=== PATIENT | male | born 1965 | race Caucasian/White ===

== ENCOUNTER 2017-06-07 12:32 | Emergency (ER) | payer SELFPAY ==
--- NOTE | 2017-06-07 13:42 | DIAGNOSTIC IMAGING REPORT ---
PROCEDURE: XR CHEST 1 VIEW INDICATION: CHEST PAIN TECHNIQUE: Portable AP view 01:16 p.m. COMPARISON: None available FINDINGS: Lungs are clear. Heart and mediastinum are normal. Thorax is normal. IMPRESSION: 1. Negative chest.
--- NOTE | 2017-06-07 15:41 | DIAGNOSTIC IMAGING REPORT ---
PROCEDURE: US ABDOMEN ULTRASOUND-LIMITED INDICATION: ABNORMAL LFT TECHNIQUE: Davis scale and color Doppler sonographic images of the abdomen were obtained without comparison. COMPARISON: None. FINDINGS: The liver is normal in size, contour, and echotexture. No mass or intrahepatic biliary dilatation. The gallbladder is normal without stones or sludge. The wall is normal thickness measuring 2.5 mm No pericholecystic fluid or Bueno sign. The extrahepatic common duct is normal measuring 3.7 mm The visualized pancreas is normal without ductal dilatation or peripancreatic fluid collection. The abdominal aorta is normal in its course and caliber. The retrohepatic inferior vena cava is patent. There is appropriate hepatopetal flow in the portal vein. The right kidney measures 11.4 cm in length. There is no perihepatic or perisplenic ascites. IMPRESSION: 1. Normal abdominal ultrasound.
--- NOTE | 2017-06-07 16:51 | ED CLINICAL REPORT ---
Clinical Report - Physicians/Mid Levels [facility] [address] [place] [address] 06/07/2017 12:33 Patient: VÍCTOR SHIRLEY Time Seen: 12:42. Arrived- By ambulance. Historian- patient and EMS personnel. HISTORY OF PRESENT ILLNESS Chief Complaint: CHEST PAIN. At its maximum, severity described as 3 / 10. When seen in the E.D., it was gone. Modifying factors- worsened by cough. Relieved by nitroglycerin (one). Relief was partial. This started 2 days ago and is still present and worsening. It was gradual in onset and has been constant. Onset during sleep. It is described as pressure and it is described as located in the left chest area and radiating to the throat. The patient has had mild difficulty breathing and nausea and has experienced diaphoresis. No vomiting. Similar symptoms previously: None. REVIEW OF SYSTEMS No pedal edema or calf pain. He has had a mild cough and palpitations. He has had severe lower back pain (chronically). No sensory loss or motor weakness. It has been similar to previous symptoms. All systems otherwise negative, except as recorded above. SOCIAL HISTORY Former smoker. No alcohol use or drug use. FAMILY HISTORY Hypertension in first-degree relative (father). ADDITIONAL NOTES The nursing notes have been reviewed. PHYSICAL EXAM Vital Signs: Have been reviewed. Appearance: The patient is morbidly obese. (tremulous). Eyes: Pupils equal, round and reactive to light. ENT: Pharynx normal. Neck: Normal inspection. Neck supple. CVS: Normal heart rate and rhythm. Heart sounds normal. Respiratory: No respiratory distress. Decreased air movement. No rales, rhonchi or wheezes. Abdomen: Soft and nontender. Bowel sounds normal. No mass. Obese. Skin: Diaphoresis. Extremities: Extremities exhibit normal ROM. No calf tenderness. No lower extremity edema. LABS, X-RAYS, AND EKG EKG: Rate: 146. Occasional ectopic beats. Premature atrial contractions. Non-specific ST segment / T wave abnormalities. Prior EKG unavailable. The study has been independently viewed by me. Artifact present. EKG #2: Rate: 117. Ectopic beats. Premature atrial contractions. EKG unchanged when compared with prior EKG. Artifact present. Chest X-ray: (IMPRESSION: 1. Negative chest.). The X-rays were interpreted by the radiologist and contemporaneously by me. Abdominal Sonogram: No acute disease. Laboratory Tests: UA-Culture if indicated: (JAZMIN: 06/07/2017 14:58) ( [facility] 06/07/2017 15:22) Final results Test Result Flag Units (Reference) URINE COLOR YELLOW URINE APPEARANCE CLEAR URINE GLUCOSE NEGATIVE (NEGATIVE) URINE BILIRUBIN NEGATIVE (NEGATIVE) URINE KETONE NEGATIVE (NEGATIVE) URINE SPECIFIC GRAVITY 1.010 (1.010-1.030) URINE PH 6.5 (5.0-8.0) URINE PROTEIN NEGATIVE (NEGATIVE) URINE UROBILINOGEN 0.2 EU/dL (0.2-1.0) URINE NITRITE NEGATIVE (NEGATIVE) URINE BLOOD NEGATIVE (NEGATIVE) URINE LEUK ESTERASE NEGATIVE (NEGATIVE) URINE RBC 0-1 rbc/hpf (0-1) URINE WBC 0-1 wbc/hpf (0-1) URINE EPITHELIAL CELLS 0-1 EPI/hpf (0-5) URINE BACTERIA NONE SEEN (NONE SEEN) URINE COMMENT CULT NOT INDICATED URINE CULTURES ARE SET-UP BASED ON THE FOLLOWING CRITERIA:POSITIVE NITRITEPOSITIVE LEUKOCYTE ESTERASEGREATER THAN 10 WHITE BLOOD CELLSMODERATE (2+) OR GREATER BACTERIA CBC w Diff: (JAZMIN: 06/07/2017 13:15) ( [facility] 06/07/2017 13:24) Final results Test Result Flag Units (Reference) WHITE BLOOD COUNT 6.2 K/uL (4.5-11.5) RED BLOOD COUNT 5.03 M/uL (4.50-5.90) HEMOGLOBIN 15.2 gm/dL (13.5-17.5) HEMATOCRIT 44.7 % (41.0-53.0) MEAN CELL VOLUME 89 fL (80-100) MEAN CORPUSCULAR HGB 30 pg (26-34) MEAN CORPUSCULAR HGB CONC 34 g/dL (31-37) RED CELL DISTRIBUTION WIDTH 14.1 % (11.6-14.8) PLATELET COUNT 222 K/uL (150-400) NEUTROPHIL % 59.0 % (50-75) LYMPH % 25.7 % (25-40) MONO % 11.4 % (3-14) EOSINOPHIL % 3.2 % (0-4) BASOPHIL % 0.7 % (0-2) PT with INR: (JAZMIN: 06/07/2017 13:15) ( [facility] 06/07[facility] 13:33) Final results Test Result Flag Units (Reference) INR 1.0 (0.8-1.2) Low Intensity Therapy: INR 1.5-2.0 PT range 18.5-23.1Mod.Intensity Therapy: INR 2.0-3.0 PT range 23.1-31.5High Intensity Therapy: INR 2.5-3.5 PT range 27.4-35.5High Intensity Therapy 2: INR 3.0-4.0 PT range 31.5-39.3 APTT 28 SECONDS (24-34) D-DIMER QUANTITATIVE < 0.27 L ug/mLFEU (0.27-0.52) The primary value of this quantitative assay relates toits negative predictive value (i.e. exclusion) of pulmonaryembolism/deep vein thrombosis/DIC.Elevated levels of d-dimer may also occur with:, age, cancer, inflammation, liver disease,post-op, infection, hematoma, coronary disease, peripheralarteriopathy, bleeding disorders and thrombolytic treatment.Results should be correlated with other clinical andradiological data.Testing Methodology: Latex Immunoassay CMP: (JAZMIN: 06/07/2017 13:15) ( [facility] 06/07/2017 15:56) Final results Test Result Flag Units (Reference) GLUCOSE 96 mg/dL (70-110) BUN 10 mg/dL (7-18) CREATININE 0.8 mg/dL (0.6-1.3) Estimated GFR >60 mL/min Estimated GFR- >60 mL/min Note: Persistent reduction over 3 months in eGFR<60 mL/min/1.73 m2 defines CKD. Patients with eGFR values>=60 mL/min/1.73 m2 may also have CKD if evidence ofpersistent proteinuria. Additional information may be foundat [email or web address].org. SODIUM 144 mmol/L (136-145) POTASSIUM 3.9 mmol/L (3.5-5.1) CHLORIDE 110 H mmol/L (98-107) CARBON DIOXIDE 26 mmol/L (21-32) CALCIUM 8.0 L mg/dL (8.5-10.1) TOTAL PROTEIN 6.5 g/dL (6.4-8.2) ALBUMIN 3.4 g/dL (3.3-5.0) BILIRUBIN, TOTAL 0.5 mg/dL (0.0-1.0) ALKALINE PHOSPHATASE 110 U/L (46-116) AST (SGOT) 159 H U/L (15-37) ALT (SGPT) 486 H U/L (12-78) LIPASE 122 U/L (73-393) AMYLASE 52 U/L (25-115) CPK 82 U/L (24-260) TROPONIN I <0.05 ng/mL (0.00-1.5) TROPONIN REFERENCE RANGE:<0.1 NEGATIVE0.1-1.5 INDETERMINANT>1.5 POSITIVE THYROID STIMULATING HORMONE 3.068 uIU/mL (0.30-3.74) . PROGRESS AND PROCEDURES Discussed case with health care provider (Dr. James - at [facility] - She says that the patient may establish care with them. They will arrange for a pharmacologic stress test and cardiology follow-up if needed.). Reviewed test results and need for additional work-up. Agreed upon need for patient follow-up. Health care provider will see patient in office. Consult obtained from cardiology. Dr. Etienne. Case discussed. Phone consult only. Old medical records reviewed. (from [facility]). Disposition: Discharged. Condition: stable. CLINICAL IMPRESSION Atypical chest pain Palpitations Chronic lumbar back pain. INSTRUCTIONS No driving or operating machinery while taking medication. Sedative medication was given during your visit. No strenuous activity. Rest. Avoid stimulants (such as cigarettes, coffee, cold medicines, sinus medicines, street drugs). (Talk with your primary care provider at the [facility] about arranging a pharmacologic stress test for you as discussed.). Warnings: Further evaluation is necessary. GENERAL WARNINGS: Return or contact your physician immediately if your condition worsens or changes unexpectedly, if not improving as expected, or if other problems arise. Your Current Medications: CONTINUE TAKING THE FOLLOWING MEDICATIONS: Metoprolol Succinate ER Oral. Omeprazole Magnesium Oral. Propranolol HCl ER Oral. 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 Understanding of the discharge instructions verbalized by patient. Follow-up with: [facility], , , [address], , [place], [id number] Follow up tomorrow. Call for an appointment. (Electronically signed by Jim Carrasco MD 06/09/2017 9:12)
--- NOTE | 2017-06-07 16:51 | ED CLINICAL REPORT ---
Clinical Report - Physicians/Mid Levels [facility] [address] [place] [address] 06/07/2017 12:33 Patient: VÍCTOR SHIRLEY Time Seen: 12:42. Arrived- By ambulance. Historian- patient and EMS personnel. HISTORY OF PRESENT ILLNESS Chief Complaint: CHEST PAIN. At its maximum, severity described as 3 / 10. When seen in the E.D., it was gone. Modifying factors- worsened by cough. Relieved by nitroglycerin (one). Relief was partial. This started 2 days ago and is still present and worsening. It was gradual in onset and has been constant. Onset during sleep. It is described as pressure and it is described as located in the left chest area and radiating to the throat. The patient has had mild difficulty breathing and nausea and has experienced diaphoresis. No vomiting. Similar symptoms previously: None. REVIEW OF SYSTEMS No pedal edema or calf pain. He has had a mild cough and palpitations. He has had severe lower back pain (chronically). No sensory loss or motor weakness. It has been similar to previous symptoms. All systems otherwise negative, except as recorded above. SOCIAL HISTORY Former smoker. No alcohol use or drug use. FAMILY HISTORY Hypertension in first-degree relative (father). ADDITIONAL NOTES The nursing notes have been reviewed. PHYSICAL EXAM Vital Signs: Have been reviewed. Appearance: The patient is morbidly obese. (tremulous). Eyes: Pupils equal, round and reactive to light. ENT: Pharynx normal. Neck: Normal inspection. Neck supple. CVS: Normal heart rate and rhythm. Heart sounds normal. Respiratory: No respiratory distress. Decreased air movement. No rales, rhonchi or wheezes. Abdomen: Soft and nontender. Bowel sounds normal. No mass. Obese. Skin: Diaphoresis. Extremities: Extremities exhibit normal ROM. No calf tenderness. No lower extremity edema. LABS, X-RAYS, AND EKG EKG: Rate: 146. Occasional ectopic beats. Premature atrial contractions. Non-specific ST segment / T wave abnormalities. Prior EKG unavailable. The study has been independently viewed by me. Artifact present. EKG #2: Rate: 117. Ectopic beats. Premature atrial contractions. EKG unchanged when compared with prior EKG. Artifact present. Chest X-ray: (IMPRESSION: 1. Negative chest.). The X-rays were interpreted by the radiologist and contemporaneously by me. Abdominal Sonogram: No acute disease. Laboratory Tests: UA-Culture if indicated: (JAZMIN: 06/07/2017 14:58) ( [facility] 06/07/2017 15:22) Final results Test Result Flag Units (Reference) URINE COLOR YELLOW URINE APPEARANCE CLEAR URINE GLUCOSE NEGATIVE (NEGATIVE) URINE BILIRUBIN NEGATIVE (NEGATIVE) URINE KETONE NEGATIVE (NEGATIVE) URINE SPECIFIC GRAVITY 1.010 (1.010-1.030) URINE PH 6.5 (5.0-8.0) URINE PROTEIN NEGATIVE (NEGATIVE) URINE UROBILINOGEN 0.2 EU/dL (0.2-1.0) URINE NITRITE NEGATIVE (NEGATIVE) URINE BLOOD NEGATIVE (NEGATIVE) URINE LEUK ESTERASE NEGATIVE (NEGATIVE) URINE RBC 0-1 rbc/hpf (0-1) URINE WBC 0-1 wbc/hpf (0-1) URINE EPITHELIAL CELLS 0-1 EPI/hpf (0-5) URINE BACTERIA NONE SEEN (NONE SEEN) URINE COMMENT CULT NOT INDICATED URINE CULTURES ARE SET-UP BASED ON THE FOLLOWING CRITERIA:POSITIVE NITRITEPOSITIVE LEUKOCYTE ESTERASEGREATER THAN 10 WHITE BLOOD CELLSMODERATE (2+) OR GREATER BACTERIA CBC w Diff: (JAZMIN: 06/07/2017 13:15) ( [facility] 06/07/2017 13:24) Final results Test Result Flag Units (Reference) WHITE BLOOD COUNT 6.2 K/uL (4.5-11.5) RED BLOOD COUNT 5.03 M/uL (4.50-5.90) HEMOGLOBIN 15.2 gm/dL (13.5-17.5) HEMATOCRIT 44.7 % (41.0-53.0) MEAN CELL VOLUME 89 fL (80-100) MEAN CORPUSCULAR HGB 30 pg (26-34) MEAN CORPUSCULAR HGB CONC 34 g/dL (31-37) RED CELL DISTRIBUTION WIDTH 14.1 % (11.6-14.8) PLATELET COUNT 222 K/uL (150-400) NEUTROPHIL % 59.0 % (50-75) LYMPH % 25.7 % (25-40) MONO % 11.4 % (3-14) EOSINOPHIL % 3.2 % (0-4) BASOPHIL % 0.7 % (0-2) PT with INR: (JAZMIN: 06/07/2017 13:15) ( [facility] 13:33) Final results Test Result Flag Units (Reference) INR 1.0 (0.8-1.2) Low Intensity Therapy: INR 1.5-2.0 PT range 18.5-23.1Mod.Intensity Therapy: INR 2.0-3.0 PT range 23.1-31.5High Intensity Therapy: INR 2.5-3.5 PT range 27.4-35.5High Intensity Therapy 2: INR 3.0-4.0 PT range 31.5-39.3 APTT 28 SECONDS (24-34) D-DIMER QUANTITATIVE < 0.27 L ug/mLFEU (0.27-0.52) The primary value of this quantitative assay relates toits negative predictive value (i.e. exclusion) of pulmonaryembolism/deep vein thrombosis/DIC.Elevated levels of d-dimer may also occur with:, age, cancer, inflammation, liver disease,post-op, infection, hematoma, coronary disease, peripheralarteriopathy, bleeding disorders and thrombolytic treatment.Results should be correlated with other clinical andradiological data.Testing Methodology: Latex Immunoassay CMP: (JAZMIN: 06/07/2017 13:15) ( [facility] 06/07/2017 15:56) Final results Test Result Flag Units (Reference) GLUCOSE 96 mg/dL (70-110) BUN 10 mg/dL (7-18) CREATININE 0.8 mg/dL (0.6-1.3) Estimated GFR >60 mL/min Estimated GFR- >60 mL/min Note: Persistent reduction over 3 months in eGFR<60 mL/min/1.73 m2 defines CKD. Patients with eGFR values>=60 mL/min/1.73 m2 may also have CKD if evidence ofpersistent proteinuria. Additional information may be foundat [email or web address].org. SODIUM 144 mmol/L (136-145) POTASSIUM 3.9 mmol/L (3.5-5.1) CHLORIDE 110 H mmol/L (98-107) CARBON DIOXIDE 26 mmol/L (21-32) CALCIUM 8.0 L mg/dL (8.5-10.1) TOTAL PROTEIN 6.5 g/dL (6.4-8.2) ALBUMIN 3.4 g/dL (3.3-5.0) BILIRUBIN, TOTAL 0.5 mg/dL (0.0-1.0) ALKALINE PHOSPHATASE 110 U/L (46-116) AST (SGOT) 159 H U/L (15-37) ALT (SGPT) 486 H U/L (12-78) LIPASE 122 U/L (73-393) AMYLASE 52 U/L (25-115) CPK 82 U/L (24-260) TROPONIN I <0.05 ng/mL (0.00-1.5) TROPONIN REFERENCE RANGE:<0.1 NEGATIVE0.1-1.5 INDETERMINANT>1.5 POSITIVE THYROID STIMULATING HORMONE 3.068 uIU/mL (0.30-3.74) . PROGRESS AND PROCEDURES Discussed case with health care provider (Dr. James - at [facility] - She says that the patient may establish care with them. They will arrange for a pharmacologic stress test and cardiology follow-up if needed.). Reviewed test results and need for additional work-up. Agreed upon need for patient follow-up. Health care provider will see patient in office. Consult obtained from cardiology. Dr. Etienne. Case discussed. Phone consult only. Old medical records reviewed. (from [facility]). Disposition: Discharged. Condition: stable. CLINICAL IMPRESSION Atypical chest pain Palpitations Chronic lumbar back pain. INSTRUCTIONS No driving or operating machinery while taking medication. Sedative medication was given during your visit. No strenuous activity. Rest. Avoid stimulants (such as cigarettes, coffee, cold medicines, sinus medicines, street drugs). (Talk with your primary care provider at the [facility] about arranging a pharmacologic stress test for you as discussed.). Warnings: Further evaluation is necessary. GENERAL WARNINGS: Return or contact your physician immediately if your condition worsens or changes unexpectedly, if not improving as expected, or if other problems arise. Your Current Medications: CONTINUE TAKING THE FOLLOWING MEDICATIONS: Metoprolol Succinate ER Oral. Omeprazole Magnesium Oral. Propranolol HCl ER Oral. Follow-up: Follow up with a advice line rn. Understanding of the discharge instructions verbalized by patient. Follow-up with: [facility], , , [address], , [place], [phone] Follow up tomorrow. Call for an appointment. (Electronically signed by Jim Carrasco MD 06/09/2017 9:12)
--- NOTE | 2017-06-07 16:51 | ED ORDER SUMMARY ---
..... Patient: VÍCTOR SHIRLEY OrderSheet [facility] VisitID: [id number] [place] [address] 52y, M Registration Date/Time: 06/07/2017 ORDER SHEET Weight: 123.8 kg Allergies: morphine, Penicillin, Cephalosporins, Percocet GENERAL ORDERS: Chest 1V Urgent (12:53 06/07/2017 Panchito PETTIT) (Ack 13:13 Shane ER Tech1) (13:34 JSimbeck R.N.) Account Support Analyst (Continuous) (12:53 06/07/2017 Panchito PETTIT) (13:03 JSimbeck R.N.) CBC w Diff Urgent (12:54 06/07/2017 Panchito PETTIT) (Ack 13:13 Shane ER Rosalva) (13:16 JSimbeck R.N.) CMP Urgent (12:54 06/07/2017 Panchito PETTIT) (Ack 13:13 Shane ER Terese1) (13:16 JSimbeck R.N.) UA-Culture if indicated Urgent (12:54 06/07/2017 Panchito PETTIT) (Ack 13:13 Shane Blackwell) (15:05 JSimbeck R.N.) PT with INR Urgent (12:54 06/07/2017 Panchito PETTIT) (Ack 13:13 Shane Blackwell) (13:16 JSimbeck R.N.) PTT Urgent (12:54 06/07/2017 Panchito PETTIT) (Ack 13:13 Shane Blackwell) (13:16 JSimbeck R.N.) Amylase Urgent (12:54 06/07/2017 Panchito PETTIT) (Ack 13:13 Shane Gudino1) (13:16 JSimbeck R.N.) D-Dimer Urgent (12:54 06/07/2017 Panchito PETTIT) (Ack 13:13 Shane Blackwell) (13:16 JSimbeck R.N.) Lipase Urgent (12:54 06/07/2017 Panchito PETTIT) (Ack 13:13 Shane Blackwell) (13:16 JSimbeck R.N.) CPK Urgent (12:54 06/07/2017 Panchito PETTIT) (Ack 13:13 PWeiler ER Tech1) (13:16 Chapincito R.N.) Troponin-I Urgent (12:54 06/07/2017 Panchito PETTIT) (Ack 13:13 PWeiler ER Tech1) (13:16 Stuarteck R.N.) Oxygen (2 L/min) (NC) (12:54 06/07/2017 Panchito PETTIT) (13:03 Chapincito R.N.) Pulse oximeter (12:54 06/07/2017 Panchito PETTIT) (13:03 Chapincito R.N.) EKG - ER Stat (12:54 06/07/2017 Panchito PETTIT) (13:03 Chapincito R.N.) US Abdomen Limited (No) Urgent (13:48 06/07/2017 Panchito PETTIT) (Ack 14:21 LNations ER Tech1) (15:03 Chapincito R.N.) TSH Urgent (15:33 06/07/2017 Panchito PETTIT) (15:42 Dawit R.N.) MEDICATION ORDERS: IV FLUIDS: IV NS : initial bolus 500 mL (1000 mL/hr), then 150 mL/hr for 4h (NOW); Urgent (12:53 06/07/2017 Panchito PETTIT) (13:04 Chapincito R.N.) Dilaudid IV 1 mg (HIGH ALERT MEDICATION, NOW) (12:53 06/07/2017 Panchito PETTIT) (13:06 Chapincito R.N.) Zofran IV 4 mg (NOW) (12:54 06/07/2017 Panchito PETTIT) (13:05 Chapincito R.N.) Dilaudid IV 0.5 mg (HIGH ALERT MEDICATION, NOW) (16:41 06/07/2017 Panchito PETTIT) (Ack 17:10 TOMYimbeck R.N.) (17:21 Kirti) ORDER SHEET NOTES: [Electronically signed by Jose A Hernadez (17:22 06/07/2017)] [Electronically signed by Jim Carrasco MD (09:12 06/09/2017)] [Electronically locked/signed by Jose A Hernadez (17:22 06/07/2017)]
--- NOTE | 2017-06-07 16:51 | ED NURSING NOTES ---
Clinical Report - Nurses [facility] [address] [place] [address] 06/07/2017 12:33 Patient: VÍCTOR SHIRLEY TRIAGE Triage time 12:34. Acuity: LEVEL 2. Chief Complaint: CHEST PAIN and DISCOMFORT and (radiates into his left jaw, mild SOB. Onset yesterday. Pt reports his heart fluttering.). SEPSIS SCREEN: Sepsis Screen. Negative (no infection suspected/documented). Heart rate greater than 90 and systolic blood pressure less than 90. STELLA COMA SCORE: [place] Coma Scale: 15- eyes open spontaneously (4); best verbal response- oriented x 4 (5); best motor response- obeys commands (6). --13:08 Trace Benitez R.N. 12:38 06/07/17. BP: 84/69 (large adult cuff) taken on the right arm, while sitting. HR: 148. RR: 20. O2 saturation: 95%. Temp: 98 F (oral). Pain level now: 07/05. --13:08 Trace Benitez R.N. Weight: 123.8 kg. Height/Length: 74 inches. BMI: 35.1. --12:58 Trace Benitez R.N. Medications Metoprolol Succinate ER Oral. --12:43 Trace Benitez R.N. Propranolol HCl ER Oral. --12:43 Trace Benitez R.N. Omeprazole Magnesium Oral. --12:43 Trace Benitez R.N. Allergies morphine. --12:40 Trace Benitez R.N. Penicillin. --12:40 Trace Benitez R.N. Cephalosporins. --12:40 Trace Benitez R.N. Percocet. --12:41 Trace Benitez R.N. History Arrived by EMS, and (Medics). Historian: EMS and patient. ( Unable to obtain a readable 12 Lead EKG due to pt shaking, notified.). 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 (ASA 325, IV SL). SOCIAL HX: Former smoker, end date 2012 (cigarette). No alcohol use or drug use. ABUSE ASSESSMENT: No report of abuse. --13:08 Trace eBnitez R.N. Interventions ID band on patient. To treatment room. --13:08 Trace Benitez R.N. PHYSICAL ASSESSMENT late entry -12:34. To room via stretcher. ( Severe low back pain 07/05.). GENERAL / NEURO / PSYCH: Alert. Oriented X 4. Appears in pain and anxious. HEENT: Mucous membranes are pink. RESPIRATORY: Respirations not labored. Breath sounds within normal limits. ( Mild SOB). CVS: Cardiac rhythm: sinus tachycardia. Heart sounds within normal limits. Pulses within normal limits. ( Substernal chest pain, not reproducible, radiates into his left jaw). Capillary refill less than 2 seconds. GI / : Abdomen soft and nontender. EXTREMITIES: No lower extremity edema. SKIN: Skin is warm. Skin is diaphoretic. Normal skin turgor. Skin is non-tender. --13:40 Trace Benitez R.N. NURSING PROGRESS NOTES 12:34 06/07/2017 Site #1 started prior to arrival by EMS via IV in the left antecubital space with an 18g angiocath. Saline lock flushed with 10 mL saline. --13:04 Trace Benitez R.N. <<STRICKEN ENTRY-- 12:45 06/07/2017 Started bag #1 1000 mL IV Fluids IV NS (Saline); bolus of 500 mL over 15 minute(s) via site #1. IV patency established. IV site checked: no pain, redness, or swelling. IV flushed thoroughly pre- and post-medication administration. --13:04 Trace Benitez R.N. --END STRIKE>> Correction. --13:04 Trace Benitez R.N. 12:45 06/07/2017 Started bag #1 1000 IV Fluids IV NS (Saline); bolus of 500 mL over 15 minute(s) via site #1. Allergies verified and confirmed 5 rights. IV patency established. IV site checked: no pain, redness, or swelling. IV flushed thoroughly pre- and post-medication administration. --13:04 Trace Benitez R.N. 13:00 06/07/2017 Zofran (Ondansetron HCl) IVP 4 mg given over 1 minute(s) via site #1. Allergies verified and confirmed 5 rights. IV patency established. IV site checked: no pain, redness, or swelling. IV flushed thoroughly pre- and post-medication administration. IVP given by RN. --13:05 Trace Benitez R.N. 13:01 06/07/2017 Dilaudid (HYDROmorphone HCl PF) IVP 1 mg given over 1 minute(s) via site #1. Allergies verified, confirmed 5 rights and sedative warning given to the patient. IV patency established. IV site checked: no pain, redness, or swelling. IV flushed thoroughly pre- and post-medication administration. IVP given by RN. --13:06 Trace Benitez R.N. 13:16 06/07/2017 Dilaudid IVP Response: no adverse reaction pain is improving. Symptoms have improved the patient feels better. --13:16 Trace Benitez R.N. 13:25 06/07/17. Monitoring of patient in place. Head of bed elevated 15 degrees. Reassurance given. Call light placed in reach. Side rails up x 2. Bed placed in lowest position. Brakes of bed on. --13:25 William EKG time: (1308). EKG was ordered, performed by a tech and shown to the ED physician. --13:44 Parrish Gonzales ER Tech1 13:48 06/07/2017 Dilaudid (HYDROmorphone HCl PF) IVP 1 mg given over 1 minute(s) via site #1. Allergies verified, confirmed 5 rights and sedative warning given to the patient. IV patency established. IV site checked: no pain, redness, or swelling. IV flushed thoroughly pre- and post-medication administration. IVP given by RN. --13:49 Trace Benitez R.N. 13:51 06/07/2017 IV Fluids IV NS Continued: at the rate of 150 mL/hr. 1000 mL remaining bag #2. IV patency established. IV site checked: no pain, redness, or swelling. IV flushed thoroughly. --13:51 William 14:19 06/07/2017 Dilaudid IVP Response: no adverse reaction pain is improving. Symptoms have improved. --14:19 Trace Benitez R.N. ( US at bedside). --14:20 Trace Benitez R.N. 17:00 06/07/2017 Dilaudid (HYDROmorphone HCl PF) IVP 0.5 mg given over 2 minute(s) via site #1. Allergies verified, confirmed 5 rights and sedative warning given to the patient. IV patency established. IV site checked: no pain, redness, or swelling. IV flushed thoroughly pre- and post-medication administration. IVP given by RN. --17:21 William. DISPOSITION / DISCHARGE 17:04 06/07/2017 Site #1 removed upon discharge. Bandage applied. --17:09 William Cardiac rhythm: normal sinus rhythm. Departure time: 17:08. Condition at departure: improved and stable. No learning barriers present. Discharge instructions provided and reviewed with the patient. Reviewed referral to a ignition specialist and family practice. Activity restrictions (rest) reviewed. Patient verbalized understanding. Written instructions provided in Romanian. The patient was discharged by the physician. He was discharged home and accompanied by director oracle. He left the Emergency Department ambulatory and via private vehicle. Wash Worker driving. --17:11 William 16:45 06/07/17. BP: 143/93. HR: 94. RR: 18. O2 saturation: 97%. Temp: 98 F (oral). James-Garcia pain scale: 4/10. --17:11 William. Locked/Released at 06/07/2017 17:22 by William
--- NOTE | 2017-06-07 16:51 | ED NURSING NOTES ---
Clinical Report - Nurses [facility] [address] [place] [address] 06/07/2017 12:33 Patient: VÍCTOR SHIRLEY TRIAGE Triage time 12:34. Acuity: LEVEL 2. Chief Complaint: CHEST PAIN and DISCOMFORT and (radiates into his left jaw, mild SOB. Onset yesterday. Pt reports his heart fluttering.). SEPSIS SCREEN: Sepsis Screen. Negative (no infection suspected/documented). Heart rate greater than 90 and systolic blood pressure less than 90. STELLA COMA SCORE: [place] Coma Scale: 15- eyes open spontaneously (4); best verbal response- oriented x 4 (5); best motor response- obeys commands (6). --13:08 Trace Benitez R.N. 12:38 06/07/17. BP: 84/69 (large adult cuff) taken on the right arm, while sitting. HR: 148. RR: 20. O2 saturation: 95%. Temp: 98 F (oral). Pain level now: 07/05. --13:08 Trace Benitez R.N. Weight: 123.8 kg. Height/Length: 74 inches. BMI: 35.1. --12:58 Trace Benitez R.N. Medications Metoprolol Succinate ER Oral. --12:43 Trace Benitez R.N. Propranolol HCl ER Oral. --12:43 Trace Benitez R.N. Omeprazole Magnesium Oral. --12:43 Trace Benitez R.N. Allergies morphine. --12:40 Trace Benitez R.N. Penicillin. --12:40 Trace Benitez R.N. Cephalosporins. --12:40 Trace Benitez R.N. Percocet. --12:41 Trace Benitez R.N. History Arrived by EMS, and (Medics). Historian: EMS and patient. ( Unable to obtain a readable 12 Lead EKG due to pt shaking, notified.). 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 (ASA 325, IV SL). SOCIAL HX: Former smoker, end date 2012 (cigarette). No alcohol use or drug use. ABUSE ASSESSMENT: No report of abuse. --13:08 Trace Benitez R.N. Interventions ID band on patient. To treatment room. --13:08 Trace Benitez R.N. PHYSICAL ASSESSMENT late entry -12:34. To room via stretcher. ( Severe low back pain 07/05.). GENERAL / NEURO / PSYCH: Alert. Oriented X 4. Appears in pain and anxious. HEENT: Mucous membranes are pink. RESPIRATORY: Respirations not labored. Breath sounds within normal limits. ( Mild SOB). CVS: Cardiac rhythm: sinus tachycardia. Heart sounds within normal limits. Pulses within normal limits. ( Substernal chest pain, not reproducible, radiates into his left jaw). Capillary refill less than 2 seconds. GI / : Abdomen soft and nontender. EXTREMITIES: No lower extremity edema. SKIN: Skin is warm. Skin is diaphoretic. Normal skin turgor. Skin is non-tender. --13:40 Trace Benitez R.N. NURSING PROGRESS NOTES 12:34 06/07/2017 Site #1 started prior to arrival by EMS via IV in the left antecubital space with an 18g angiocath. Saline lock flushed with 10 mL saline. --13:04 Trace Benitez R.N. <<STRICKEN ENTRY-- 12:45 06/07/2017 Started bag #1 1000 mL IV Fluids IV NS (Saline); bolus of 500 mL over 15 minute(s) via site #1. IV patency established. IV site checked: no pain, redness, or swelling. IV flushed thoroughly pre- and post-medication administration. --13:04 Trace Benitez R.N. --END STRIKE>> Correction. --13:04 Trace Benitez R.N. 12:45 06/07/2017 Started bag #1 1000 IV Fluids IV NS (Saline); bolus of 500 mL over 15 minute(s) via site #1. Allergies verified and confirmed 5 rights. IV patency established. IV site checked: no pain, redness, or swelling. IV flushed thoroughly pre- and post-medication administration. --13:04 Trace Benitez R.N. 13:00 06/07/2017 Zofran (Ondansetron HCl) IVP 4 mg given over 1 minute(s) via site #1. Allergies verified and confirmed 5 rights. IV patency established. IV site checked: no pain, redness, or swelling. IV flushed thoroughly pre- and post-medication administration. IVP given by RN. --13:05 Trace Benitez R.N. 13:01 06/07/2017 Dilaudid (HYDROmorphone HCl PF) IVP 1 mg given over 1 minute(s) via site #1. Allergies verified, confirmed 5 rights and sedative warning given to the patient. IV patency established. IV site checked: no pain, redness, or swelling. IV flushed thoroughly pre- and post-medication administration. IVP given by RN. --13:06 Trace Benitez R.N. 13:16 06/07/2017 Dilaudid IVP Response: no adverse reaction pain is improving. Symptoms have improved the patient feels better. --13:16 Trace Benitez R.N. 13:25 06/07/17. Monitoring of patient in place. Head of bed elevated 15 degrees. Reassurance given. Call light placed in reach. Side rails up x 2. Bed placed in lowest position. Brakes of bed on. --13:25 William EKG time: (1308). EKG was ordered, performed by a tech and shown to the ED physician. --13:44 Parrish Gonzales ER Tech1 13:48 06/07/2017 Dilaudid (HYDROmorphone HCl PF) IVP 1 mg given over 1 minute(s) via site #1. Allergies verified, confirmed 5 rights and sedative warning given to the patient. IV patency established. IV site checked: no pain, redness, or swelling. IV flushed thoroughly pre- and post-medication administration. IVP given by RN. --13:49 Trace Benitez R.N. 13:51 06/07/2017 IV Fluids IV NS Continued: at the rate of 150 mL/hr. 1000 mL remaining bag #2. IV patency established. IV site checked: no pain, redness, or swelling. IV flushed thoroughly. --13:51 William 14:19 06/07/2017 Dilaudid IVP Response: no adverse reaction pain is improving. Symptoms have improved. --14:19 Trace Benitez R.N. ( US at bedside). --14:20 Trace Benitez R.N. 17:00 06/07/2017 Dilaudid (HYDROmorphone HCl PF) IVP 0.5 mg given over 2 minute(s) via site #1. Allergies verified, confirmed 5 rights and sedative warning given to the patient. IV patency established. IV site checked: no pain, redness, or swelling. IV flushed thoroughly pre- and post-medication administration. IVP given by RN. --17:21 William. DISPOSITION / DISCHARGE 17:04 06/07/2017 Site #1 removed upon discharge. Bandage applied. --17:09 William Cardiac rhythm: normal sinus rhythm. Departure time: 17:08. Condition at departure: improved and stable. No learning barriers present. Discharge instructions provided and reviewed with the patient. Reviewed referral to a hand shaper and family practice. Activity restrictions (rest) reviewed. Patient verbalized understanding. Written instructions provided in Danish. The patient was discharged by the physician. He was discharged home and accompanied by stitching department supervisor. He left the Emergency Department ambulatory and via private vehicle. Gate Attendant driving. --17:11 William 16:45 06/07/17. BP: 143/93. HR: 94. RR: 18. O2 saturation: 97%. Temp: 98 F (oral). James-Garcia pain scale: 4/10. --17:11 William. Locked/Released at 06/07/2017 17:22 by William
--- NOTE | 2017-06-07 16:51 | ED ORDER SUMMARY ---
..... Patient: VÍCTOR SHIRLEY OrderSheet [facility] VisitID: [id number] [place] [address] 52y, M Registration Date/Time: 06/07/2017 ORDER SHEET Weight: 123.8 kg Allergies: morphine, Penicillin, Cephalosporins, Percocet GENERAL ORDERS: Chest 1V Urgent (12:53 06/07/2017 Panchito PETTIT) (Ack 13:13 Shane ER Tech1) (13:34 JSimbeck R.N.) Oil Pit Attendant (Continuous) (12:53 06/07/2017 Panchito PETTIT) (13:03 JSimbeck R.N.) CBC w Diff Urgent (12:54 06/07/2017 Panchito PETTIT) (Ack 13:13 Shane ER Rosalva) (13:16 JSimbeck R.N.) CMP Urgent (12:54 06/07/2017 Panchito PETTIT) (Ack 13:13 Shane ER Terese1) (13:16 JSimbeck R.N.) UA-Culture if indicated Urgent (12:54 06/07/2017 Panchito PETTIT) (Ack 13:13 Shane Blackwell) (15:05 JSimbeck R.N.) PT with INR Urgent (12:54 06/07/2017 Panchito PETTIT) (Ack 13:13 Shane Blackwell) (13:16 JSimbeck R.N.) PTT Urgent (12:54 06/07/2017 Panchito PETTIT) (Ack 13:13 Shane Blackwell) (13:16 JSimbeck R.N.) Amylase Urgent (12:54 06/07/2017 Panchito PETTIT) (Ack 13:13 Shane Gudino1) (13:16 JSimbeck R.N.) D-Dimer Urgent (12:54 06/07/2017 Panchito PETTIT) (Ack 13:13 Shane Blackwell) (13:16 JSimbeck R.N.) Lipase Urgent (12:54 06/07/2017 Panchito PETTIT) (Ack 13:13 Shane Blackwell) (13:16 JSimbeck R.N.) CPK Urgent (12:54 06/07/2017 Panchito PETTIT) (Ack 13:13 PWeiler ER Tech1) (13:16 Chapincito R.N.) Troponin-I Urgent (12:54 06/07/2017 Panchito PETTIT) (Ack 13:13 PWeiler ER Tech1) (13:16 Stuarteck R.N.) Oxygen (2 L/min) (NC) (12:54 06/07/2017 Panchito PETTIT) (13:03 Chapincito R.N.) Pulse oximeter (12:54 06/07/2017 Panchito PETTIT) (13:03 Chapincito R.N.) EKG - ER Stat (12:54 06/07/2017 Panchito PETTIT) (13:03 Chapincito R.N.) US Abdomen Limited (No) Urgent (13:48 06/07/2017 Panchito PETTIT) (Ack 14:21 LNations ER Tech1) (15:03 Chapincito R.N.) TSH Urgent (15:33 06/07/2017 Panchito PETTIT) (15:42 Dawit R.N.) MEDICATION ORDERS: IV FLUIDS: IV NS : initial bolus 500 mL (1000 mL/hr), then 150 mL/hr for 4h (NOW); Urgent (12:53 06/07/2017 Panchito PETTIT) (13:04 Chapincito R.N.) Dilaudid IV 1 mg (HIGH ALERT MEDICATION, NOW) (12:53 06/07/2017 Panchito PETTIT) (13:06 Chapincito R.N.) Zofran IV 4 mg (NOW) (12:54 06/07/2017 Panchito PETTIT) (13:05 Chapincito R.N.) Dilaudid IV 0.5 mg (HIGH ALERT MEDICATION, NOW) (16:41 06/07/2017 Panchito PETTIT) (Ack 17:10 TOMYimbeck R.N.) (17:21 Kirti) ORDER SHEET NOTES: [Electronically signed by Jose A Hernadez (17:22 06/07/2017)] [Electronically signed by Jim Carrasco MD (09:12 06/09/2017)] [Electronically locked/signed by Jose A Hernadez (17:22 06/07/2017)]
--- NOTE | 2017-06-09 09:13 | ED MED RECONCILIATION SUMMARY ---
Patient: VÍCTOR SHIRLEY Medication Reconciliation Report [facility] VisitID: [id number] [address] [place] [address] 52y, M Registration Date/Time: 06/07/2017 Weight: 123.8 kg Height/Length: 74 in. BMI: 35.1 ALLERGIES: Cephalosporins, morphine, Penicillin, Percocet The patient's Home Medications are listed below: CONTINUE TAKING THE FOLLOWING MEDICATIONS: Metoprolol Succinate ER Oral Omeprazole Magnesium Oral Propranolol HCl ER Oral The source(s) of the original Home Medication information: Not obtained. The following Medications were given to the patient in the Emergency Department: IV NS IV Fluids bolus 500 mL over 15 minute(s), administered: 06/07/2017 12:45:00 PM Zofran [IVP] IVP 4 mg, administered: 06/07/2017 1:00:00 PM Dilaudid [IVP] IVP 1 mg, administered: 06/07/2017 1:01:00 PM Dilaudid [IVP] IVP 1 mg, administered: 06/07/2017 1:48:00 PM Dilaudid [IVP] IVP 0.5 mg, administered: 06/07/2017 5:00:00 PM The following Medications were prescribed to the patient: None.
--- NOTE | 2017-06-09 09:13 | ED MAR SUMMARY ---
..... Medication Administration Record [facility] [address] [place] [address] Patient: VÍCTOR SHIRLEY Visit ID: [id number] 52y, M Weight: 123.8 kg Height/Length: 74 in BMI: 35.1 ALLERGIES: Percocet, Cephalosporins, Penicillin, morphine Start 12:45 06/07/2017 Trace Benitez R.N., Continued Upon Disposition 13:51 06/07/2017 AliM, Medication Administered: IV NS (SALINE), Dose: IV Fluids, Bolus: 500 mL over 15 minute(s), Dispensed: 1000 mL bag, Site: #1 left AC. Medication Ordered: IV NS : initial bolus 500 mL (1000 mL/hr), then 150 mL/hr for 4h (NOW); Urgent. Given 13:00 06/07/2017 Trace Benitez R.N. Medication Administered: ZOFRAN [IVP] (ONDANSETRON HCL), Dose: 4 mg IVP over 1 minute(s), Site: #1 left AC. Medication Ordered: Zofran IV 4 mg (NOW). Given 13:01 06/07/2017 Trace Benitez R.N. Medication Administered: DILAUDID [IVP] (HYDROMORPHONE HCL PF), Dose: 1 mg IVP over 1 minute(s), Site: #1 left AC. Medication Ordered: Dilaudid IV 1 mg (HIGH ALERT MEDICATION, NOW). Given 13:48 06/07/2017 Trace Benitez R.N. Medication Administered: DILAUDID [IVP] (HYDROMORPHONE HCL PF), Dose: 1 mg IVP over 1 minute(s), Site: #1 left AC. Medication Ordered: Dilaudid IV 1 mg (HIGH ALERT MEDICATION, NOW). Given 17:00 06/07/2017 William, Medication Administered: DILAUDID [IVP] (HYDROMORPHONE HCL PF), Dose: 0.5 mg IVP over 2 minute(s), Site: #1 left AC. Medication Ordered: Dilaudid IV 0.5 mg (HIGH ALERT MEDICATION, NOW).
--- NOTE | 2017-06-09 09:13 | ED DISCHARGE INSTRUCTIONS ---
Patient: VÍCTOR SHIRLEY General Instructions [facility] VisitID: [id number] [address] [place] [address] 52y, M Registration Date/Time: 06/07/2017 Atypical chest pain Palpitations Chronic lumbar back pain. INSTRUCTIONS No driving or operating machinery while taking medication. Sedative medication was given during your visit. No strenuous activity. Rest. Avoid stimulants (such as cigarettes, coffee, cold medicines, sinus medicines, street drugs). (Talk with your primary care provider at the [facility] about arranging a pharmacologic stress test for you as discussed.). Warnings: Further evaluation is necessary. GENERAL WARNINGS: Return or contact your physician immediately if your condition worsens or changes unexpectedly, if not improving as expected, or if other problems arise. Your Current Medications: CONTINUE TAKING THE FOLLOWING MEDICATIONS: Metoprolol Succinate ER Oral. Omeprazole Magnesium Oral. Propranolol HCl ER Oral. Follow-up: Follow up with a model builder display. Understanding of the discharge instructions verbalized by patient. Follow-up with: [facility], , , [address], , [place], [address] Follow up tomorrow. Call for an appointment. ADDITIONAL INFORMATION Chest Pain, Uncertain Cause Chest pain can happen for a number of reasons. Sometimes the cause can not be determined. If yourcondition does not seem serious, and your pain does not appear to be coming from your heart, your doctor may recommend watching it closely. Sometimes the signs of a serious problem take more time to appear. Therefore, watch for the warning signs listed below. Home care After your visit, follow these recommendations: Rest today and avoid strenuous activity. Take any prescribed medicine as directed. Follow-up care Follow up with your doctor or this facility as instructed or if you do not start to feel better within 24 hours. Call 911 Get immediate medical attention if any of the following occur: A change in the type of pain: if it feels different, becomes more severe, lasts longer, or begins to spread into your shoulder, arm, neck, jaw or back Shortness of breath or increased pain with breathing Weakness, dizziness, or fainting Rapid heart beat Get prompt medical attention Call your doctor right away if any of the following occur: Cough with dark colored sputum (phlegm) or blood Fever of 100.4F(38C) or higher, or as directed by your health care provider Swelling, pain or redness in one leg Heart Palpitations Palpitations refers to the feeling that your heart is beating hard, fast or irregular. Some people describe it as "pounding" or "skipped beats". Palpitations may occur in persons with heart disease, but can also occur in healthy persons. Heart-Related Causes: Arrhythmia (a change from the heart's normal rhythm) Disease of the heart valves Ncr-Ntdle-Pxdghhs Causes: Certain medicines (such as asthma inhalers and decongestants) Some herbal supplements, energy drinks and pills, and weight loss pills Illegal stimulant drugs (such as cocaine, crank, methamphetamine, PCP) Caffeine, alcohol and tobacco Medical conditions such as thyroid disease, anemia, anxiety and panic disorder Sometimes the cause cannot be found. Home Care: Avoid excess caffeine, alcohol, tobacco and any stimulant drugs. Tell your doctor about any prescription or [id number] or herbal medicines you take. Follow Up with your doctor or as advised by our staff. Get Prompt Medical Attention if any of the following occur together with palpitations: Weakness, dizziness, light-headed or fainting Chest pain or shortness of breath Rapid heart rate (over 120 beats per minute, at rest) Palpitations that lasts over 20 minutes Weakness of an arm or leg or one side of the face Difficulty with speech or vision You have been given the following additional information: Chest Pain, Uncertain Cause Palpitations No driving or operating machinery while taking medication. Sedative medication was given during your visit. No strenuous activity. Rest. (Electronically signed by Jim Carrasco MD 06/09/2017 9:12)
--- NOTE | 2017-06-09 09:13 | ED DISCHARGE INSTRUCTIONS ---
Patient: VÍCTOR SHIRLEY General Instructions [facility] VisitID: [id number] [address] [place] [address] 52y, M Registration Date/Time: 06/07/2017 Atypical chest pain Palpitations Chronic lumbar back pain. INSTRUCTIONS No driving or operating machinery while taking medication. Sedative medication was given during your visit. No strenuous activity. Rest. Avoid stimulants (such as cigarettes, coffee, cold medicines, sinus medicines, street drugs). (Talk with your primary care provider at the [facility] about arranging a pharmacologic stress test for you as discussed.). Warnings: Further evaluation is necessary. GENERAL WARNINGS: Return or contact your physician immediately if your condition worsens or changes unexpectedly, if not improving as expected, or if other problems arise. Your Current Medications: CONTINUE TAKING THE FOLLOWING MEDICATIONS: Metoprolol Succinate ER Oral. Omeprazole Magnesium Oral. Propranolol HCl ER Oral. Follow-up: Follow up with a billing rep. Understanding of the discharge instructions verbalized by patient. Follow-up with: [facility], , , [address], , [place], [id number] Follow up tomorrow. Call for an appointment. ADDITIONAL INFORMATION Chest Pain, Uncertain Cause Chest pain can happen for a number of reasons. Sometimes the cause can not be determined. If yourcondition does not seem serious, and your pain does not appear to be coming from your heart, your doctor may recommend watching it closely. Sometimes the signs of a serious problem take more time to appear. Therefore, watch for the warning signs listed below. Home care After your visit, follow these recommendations: Rest today and avoid strenuous activity. Take any prescribed medicine as directed. Follow-up care Follow up with your doctor or this facility as instructed or if you do not start to feel better within 24 hours. Call 911 Get immediate medical attention if any of the following occur: A change in the type of pain: if it feels different, becomes more severe, lasts longer, or begins to spread into your shoulder, arm, neck, jaw or back Shortness of breath or increased pain with breathing Weakness, dizziness, or fainting Rapid heart beat Get prompt medical attention Call your doctor right away if any of the following occur: Cough with dark colored sputum (phlegm) or blood Fever of 100.4F(38C) or higher, or as directed by your health care provider Swelling, pain or redness in one leg Heart Palpitations Palpitations refers to the feeling that your heart is beating hard, fast or irregular. Some people describe it as "pounding" or "skipped beats". Palpitations may occur in persons with heart disease, but can also occur in healthy persons. Heart-Related Causes: Arrhythmia (a change from the heart's normal rhythm) Disease of the heart valves Nlc-Miudy-Zgmomdw Causes: Certain medicines (such as asthma inhalers and decongestants) Some herbal supplements, energy drinks and pills, and weight loss pills Illegal stimulant drugs (such as cocaine, crank, methamphetamine, PCP) Caffeine, alcohol and tobacco Medical conditions such as thyroid disease, anemia, anxiety and panic disorder Sometimes the cause cannot be found. Home Care: Avoid excess caffeine, alcohol, tobacco and any stimulant drugs. Tell your doctor about any prescription or [id number] or herbal medicines you take. Follow Up with your doctor or as advised by our staff. Get Prompt Medical Attention if any of the following occur together with palpitations: Weakness, dizziness, light-headed or fainting Chest pain or shortness of breath Rapid heart rate (over 120 beats per minute, at rest) Palpitations that lasts over 20 minutes Weakness of an arm or leg or one side of the face Difficulty with speech or vision You have been given the following additional information: Chest Pain, Uncertain Cause Palpitations No driving or operating machinery while taking medication. Sedative medication was given during your visit. No strenuous activity. Rest. (Electronically signed by Jim Carrasco MD 06/09/2017 9:12)
--- NOTE | 2017-06-09 09:13 | ED MAR SUMMARY ---
..... Medication Administration Record [facility] [address] [address] Patient: VÍCTOR SHIRLEY Visit ID: [id number] 52y, M Weight: 123.8 kg Height/Length: 74 in BMI: 35.1 ALLERGIES: Percocet, Cephalosporins, Penicillin, morphine Start 12:45 06/07/2017 Trace Benitez R.N., Continued Upon Disposition 13:51 06/07/2017 AliM, Medication Administered: IV NS (SALINE), Dose: IV Fluids, Bolus: 500 mL over 15 minute(s), Dispensed: 1000 mL bag, Site: #1 left AC. Medication Ordered: IV NS : initial bolus 500 mL (1000 mL/hr), then 150 mL/hr for 4h (NOW); Urgent. Given 13:00 06/07/2017 Trace Benitez R.N. Medication Administered: ZOFRAN [IVP] (ONDANSETRON HCL), Dose: 4 mg IVP over 1 minute(s), Site: #1 left AC. Medication Ordered: Zofran IV 4 mg (NOW). Given 13:01 06/07/2017 Trace Benitez R.N. Medication Administered: DILAUDID [IVP] (HYDROMORPHONE HCL PF), Dose: 1 mg IVP over 1 minute(s), Site: #1 left AC. Medication Ordered: Dilaudid IV 1 mg (HIGH ALERT MEDICATION, NOW). Given 13:48 06/07/2017 Trace Benitez R.N. Medication Administered: DILAUDID [IVP] (HYDROMORPHONE HCL PF), Dose: 1 mg IVP over 1 minute(s), Site: #1 left AC. Medication Ordered: Dilaudid IV 1 mg (HIGH ALERT MEDICATION, NOW). Given 17:00 06/07/2017 William, Medication Administered: DILAUDID [IVP] (HYDROMORPHONE HCL PF), Dose: 0.5 mg IVP over 2 minute(s), Site: #1 left AC. Medication Ordered: Dilaudid IV 0.5 mg (HIGH ALERT MEDICATION, NOW).
--- NOTE | 2017-06-09 09:13 | ED MED RECONCILIATION SUMMARY ---
Patient: VÍCTOR SHIRLEY Medication Reconciliation Report [facility] VisitID: [id number] [address] [place] [address] 52y, M Registration Date/Time: 06/07/2017 Weight: 123.8 kg Height/Length: 74 in. BMI: 35.1 ALLERGIES: Cephalosporins, morphine, Penicillin, Percocet The patient's Home Medications are listed below: CONTINUE TAKING THE FOLLOWING MEDICATIONS: Metoprolol Succinate ER Oral Omeprazole Magnesium Oral Propranolol HCl ER Oral The source(s) of the original Home Medication information: Not obtained. The following Medications were given to the patient in the Emergency Department: IV NS IV Fluids bolus 500 mL over 15 minute(s), administered: 06/07/2017 12:45:00 PM Zofran [IVP] IVP 4 mg, administered: 06/07/2017 1:00:00 PM Dilaudid [IVP] IVP 1 mg, administered: 06/07/2017 1:01:00 PM Dilaudid [IVP] IVP 1 mg, administered: 06/07/2017 1:48:00 PM Dilaudid [IVP] IVP 0.5 mg, administered: 06/07/2017 5:00:00 PM The following Medications were prescribed to the patient: None.
== END 2017-06-07 17:08 | disposition home or self-care (01) ==
LOC: ED SRH 12:32
DX: R07.89 Other chest pain (principal); R00.2 Palpitations; M54.5 Low back pain; G89.29 Other chronic pain; Z79.899 Other long term (current) drug therapy; Z87.891 Personal history of nicotine dependence; Z88.0 Allergy status to penicillin; Z88.5 Allergy status to narcotic agent; Z88.1 Allergy status to other antibiotic agents
CPT/HCPCS: 90004; 90100; 90616; 91556; 92235; 92530; 92610; 93140; 94001; 94060; 95059